=== PATIENT | female | born 1950 | race Caucasian/White ===

== ENCOUNTER 2018-04-02 18:10 | Observation (INO) ==
--- NOTE | 2018-04-02 18:35 | Emergency Department Note ---
Disposition Clinical Impression: Atrial fibrillation with RVR, Diverticulitis Disposition: Still a Patient Referrals: Miles Yan DO [Primary Care Provider] - Forms: ED Satisfaction Letter General Adult HPI - General Chief complaint: ED Arrhythmia/Palpitations Stated complaint: "heart jumping in chest"/"high bp" Time Seen by Provider: 04/02/18 18:15 Source: patient, family Limitations: no limitations Nursing Notes Reviewed: Yes Vital Signs Reviewed: Yes - History of Present Illness HPI Narrative: Patient presents with sensation of heart fluttering for the last day and she has not had this in the past. No history of atrial fibrillation. No chest pain or tightness or discomfort or pressure. No shortness of breath or diaphoresis. No pain or swelling of the lower extremities. No medication has been used. Family history: Positive for heart disease in both parents. Social history: No smoking. She is here with her granddaughter. Pain Scale: 0 - Related Data Home Medications Medication Instructions Recorded Confirmed ALPRAZolam [Xanax 0.25 MG Tablet] 0.25 mg PO DAILY PRN 09/23/16 04/02/18 Metoprolol Succinate [Toprol Xl] 12.5 mg PO DAILY 04/02/18 04/02/18 Allergies Allergy/AdvReac Type Severity Reaction Status Date / Time codeine AdvReac Nausea Verified 04/02/18 18:12 Sulfa (Sulfonamide AdvReac Nausea Verified 04/02/18 18:12 Antibiotics) Review of Systems: Constitutional: No fever Vision: No blurred vision ENT: No rhinorrhea Respiratory: No cough Allergic: No allergies : No blood in urine GI: No blood in stool Hematologic: No bruising Dermatologic: No skin rash Musculoskeletal: No pain in the extremities Neuro: No numbness of the extremities Past Medical History - Past Medical History Medical history: Reports: fibromyalgia, other Surgical history: Reports: cholecystectomy, other Psychiatric history: Reports: no psych history STUDIO MODEL history: Reports: no STUDIO MODEL history - Social History Smoking Status: Former smoker Smokeless Tobacco Status: No Alcohol use: Reports: none Drug use: Reports: none Physical Exam CONSTITUTIONAL: Well-appearing; well-nourished; A&O X 3, in no apparent distress HEAD: Normocephalic; atraumatic EYES: PERRL, no scleral icterus NOSE: The nose is normal in appearance without rhinorrhea RESP: Normal chest excursion with respiration; breath sounds clear and equal bilaterally; no wheezes, rhonchi, or rales CARD: Regular rhythm, without murmurs, rub or gallop ABD: Non-distended; non-tender, soft, without rigidity, rebound or guarding,no pulsatile mass SKIN: Normal for age and race; warm and dry without diaphoresis ; no apparent lesions EXTREMITIES: Pulses are 2 plus and equal times 4 extremities, no peripheral edema or calf muscle pain - General Limitations: no limitations General appearance: alert, in no apparent distress Course Vital Signs Temperature 98.1 F 04/02/18 18:12 Pulse Rate 119 04/02/18 18:12 Respiratory Rate 20 04/02/18 18:12 Blood Pressure 174/87 04/02/18 18:12 O2 Sat by Pulse Oximetry 98 04/02/18 18:12 Temperature 98.1 F 04/02/18 18:12 Pulse Rate 112 04/02/18 19:01 Respiratory Rate 16 04/02/18 19:01 Blood Pressure 141/94 04/02/18 19:01 O2 Sat by Pulse Oximetry 98 04/02/18 19:01 Oxygen Delivery Oxygen Delivery Room Air Medical Decision Making - [facility] Narrative Medical decision making narrative: Patient has initial EKG showing sinus tachycardia with a rate of 107 without acute ischemic change and the second EKG was done when the patient was having a sensation of palpitations and does show normal sinus rhythm initially changing to atrial fibrillation with rapid ventricular response with a rate of 131 bpm. Patient then went back into sinus rhythm. Labs are pending including troponin and electrolytes the patient will be admitted. Care will be transitioned to the night team of physicians [id number]
[2018-04-02 19:21] LABS: Hematocrit 38.7 % (35.3-44.9); Hemoglobin 13.2 g/dL (11.5-15.4); Mean Corpuscular HGB Conc 34.1 g/dL (31.6-35.5); Mean Corpuscular Hemoglobin 32.1 pg (28.0-33.3); Mean Corpuscular Volume 94.2 fL (83.0-100.0); Mean Platelet Volume 9.2 fL (9.4-12.4); Platelet Count 258 K/mcL (140-400); Red Blood Count 4.11 M/mcL (3.82-4.97); Red Cell Distribution Width 12.4 % (11.5-14.5)
--- NOTE | 2018-04-02 19:27 | Emergency Department Note ---
Disposition Clinical Impression: Atrial fibrillation with RVR Disposition: Admitted As Inpatient Condition: Fair General Adult HPI - General Chief complaint: ED Arrhythmia/Palpitations Stated complaint: "heart jumping in chest"/"high bp" Time Seen by Provider: 04/02/18 18:15 Source: patient, family Limitations: no limitations - History of Present Illness Pain Scale: 0 - Related Data Home Medications Medication Instructions Recorded Confirmed ALPRAZolam [Xanax 0.25 MG Tablet] 0.25 mg PO DAILY PRN 09/23/16 04/02/18 Metoprolol Succinate [Toprol Xl] 12.5 mg PO DAILY 04/02/18 04/02/18 Allergies Allergy/AdvReac Type Severity Reaction Status Date / Time codeine AdvReac Nausea Verified 04/02/18 18:12 Sulfa (Sulfonamide AdvReac Nausea Verified 04/02/18 18:12 Antibiotics) Past Medical History - Past Medical History Medical history: Reports: fibromyalgia, other Surgical history: Reports: cholecystectomy, other Psychiatric history: Reports: no psych history IMPROVEMENT INTERN history: Reports: no IMPROVEMENT INTERN history - Social History Smoking Status: Former smoker Smokeless Tobacco Status: No Alcohol use: Reports: none Drug use: Reports: none Physical Exam - General Limitations: no limitations General appearance: alert, in no apparent distress Course Vital Signs Temperature 98.1 F 04/02/18 18:12 Pulse Rate 119 04/02/18 18:12 Respiratory Rate 20 04/02/18 18:12 Blood Pressure 174/87 04/02/18 18:12 O2 Sat by Pulse Oximetry 98 04/02/18 18:12 Temperature 97.9 F 04/02/18 23:01 Pulse Rate 84 04/02/18 23:01 Respiratory Rate 16 04/02/18 23:01 Blood Pressure 152/72 04/02/18 23:01 O2 Sat by Pulse Oximetry 97 04/02/18 23:01 Oxygen Delivery Oxygen Delivery Room Air Medical Decision Making - Lab Data Result diagrams: 04/02/18 18:29 04/02/18 18:29 Lab Results 04/02/18 04/02/18 Range/Units 18:29 18:29 WBC 10.1 (4.3-11.1) K/mcL RBC 4.11 (3.82-4.97) M/mcL Hgb 13.2 (11.5-15.4) g/dL Hct 38.7 (35.3-44.9) % MCV 94.2 (83.0-100.0) fL MCH 32.1 (28.0-33.3) pg MCHC 34.1 (31.6-35.5) g/dL RDW 12.4 (11.5-14.5) % Plt Count 258 (140-400) K/mcL MPV 9.2 L (9.4-12.4) fL Sodium 138 (136-145) mEq/L Potassium 4.3 (3.5-5.1) mEq/L Chloride 106 (98-107) mEq/L Carbon Dioxide 23 (23-29) mEq/L BUN 21 (8-23) mg/dL Creatinine 1.03 (0.60-1.20) mg/dL Est GFR ( Amer) > 60 (> 60) Est GFR (Non-Af Amer) 53 L (> 60) BUN/Creatinine Ratio 20 (6-26) Glucose 97 (70-105) mg/dL Calculated Osmolality 289 (280-300) Calcium 9.4 (8.6-10.3) mg/dL Magnesium 2.1 (1.6-2.6) mg/dL Troponin I < 0.03 (< 0.04) ng/mL TSH 4.632 (0.340-5.600) mcIU/mL Critical Care Time Critical Care Time: Yes Total Critical Care Time: 33 Attestation: Critical care performed: Time is exclusive of separately billable procedures. Time includes: direct patient care, patient reassessment, coordination of patient care, interpretation of data (laboratory data, radiology data, and respiratory data), review of patient's medical records, medical consultation and documentation of patient care. Procedures included in critical care time: Procedures excluded from critical care time:
[2018-04-02 19:44] LABS: BUN/Creatinine Ratio 20 (6-26); Blood Urea Nitrogen 21 mg/dL (8-23); Calcium 9.4 mg/dL (8.6-10.3); Carbon Dioxide 23 mEq/L (23-29); Chloride 106 mEq/L (98-107); Glucose 97 mg/dL (70-105); Osmolality,Calculated 289 (280-300); Potassium 4.3 mEq/L (3.5-5.1); Sodium 138 mEq/L (136-145); eGFR For African Americans > 60 (> 60); eGFR For Non-African Americans 53 (> 60)
[2018-04-02 19:45] LABS: Troponin I < 0.03 ng/mL (< 0.04)
--- NOTE | 2018-04-02 19:47 | Emergency Department Note ---
Disposition Clinical Impression: Atrial fibrillation with RVR, Diverticulitis Disposition: Still a Patient Referrals: Miles Yan DO [Primary Care Provider] - Forms: ED Satisfaction Letter General Adult HPI - General Chief complaint: ED Arrhythmia/Palpitations Stated complaint: "heart jumping in chest"/"high bp" Time Seen by Provider: 04/02/18 18:15 Source: patient, family Limitations: no limitations - History of Present Illness Pain Scale: 0 - Related Data Home Medications Medication Instructions Recorded Confirmed ALPRAZolam [Xanax 0.25 MG Tablet] 0.25 mg PO DAILY PRN 09/23/16 04/02/18 Metoprolol Succinate [Toprol Xl] 12.5 mg PO DAILY 04/02/18 04/02/18 Allergies Allergy/AdvReac Type Severity Reaction Status Date / Time codeine AdvReac Nausea Verified 04/02/18 18:12 Sulfa (Sulfonamide AdvReac Nausea Verified 04/02/18 18:12 Antibiotics) Past Medical History - Past Medical History Medical history: Reports: fibromyalgia, other Surgical history: Reports: cholecystectomy, other Psychiatric history: Reports: no psych history TOURIST INFORMATION ASSISTANT history: Reports: no TOURIST INFORMATION ASSISTANT history - Social History Smoking Status: Former smoker Smokeless Tobacco Status: No Alcohol use: Reports: none Drug use: Reports: none Physical Exam - General Limitations: no limitations General appearance: alert, in no apparent distress Course Vital Signs Temperature 98.1 F 04/02/18 18:12 Pulse Rate 119 04/02/18 18:12 Respiratory Rate 20 04/02/18 18:12 Blood Pressure 174/87 04/02/18 18:12 O2 Sat by Pulse Oximetry 98 04/02/18 18:12 Temperature 98.1 F 04/02/18 18:12 Pulse Rate 112 04/02/18 19:01 Respiratory Rate 16 04/02/18 19:01 Blood Pressure 141/94 04/02/18 19:01 O2 Sat by Pulse Oximetry 98 04/02/18 19:01 Oxygen Delivery Oxygen Delivery Room Air Medical Decision Making - Lab Data Result diagrams: 04/02/18 18:29 04/02/18 18:29 Lab Results 04/02/18 04/02/18 Range/Units 18:29 18:29 WBC 10.1 (4.3-11.1) K/mcL RBC 4.11 (3.82-4.97) M/mcL Hgb 13.2 (11.5-15.4) g/dL Hct 38.7 (35.3-44.9) % MCV 94.2 (83.0-100.0) fL MCH 32.1 (28.0-33.3) pg MCHC 34.1 (31.6-35.5) g/dL RDW 12.4 (11.5-14.5) % Plt Count 258 (140-400) K/mcL MPV 9.2 L (9.4-12.4) fL Sodium 138 (136-145) mEq/L Potassium 4.3 (3.5-5.1) mEq/L Chloride 106 (98-107) mEq/L Carbon Dioxide 23 (23-29) mEq/L BUN 21 (8-23) mg/dL Creatinine 1.03 (0.60-1.20) mg/dL Est GFR ( Amer) > 60 (> 60) Est GFR (Non-Af Amer) 53 L (> 60) BUN/Creatinine Ratio 20 (6-26) Glucose 97 (70-105) mg/dL Calculated Osmolality 289 (280-300) Calcium 9.4 (8.6-10.3) mg/dL Troponin I < 0.03 (< 0.04) ng/mL Critical Care Time Critical Care Time: Yes Total Critical Care Time: 30 Attestation: Critical care performed: Time is exclusive of separately billable procedures. Time includes: direct patient care, patient reassessment, coordination of patient care, interpretation of data (laboratory data, radiology data, and respiratory data), review of patient's medical records, medical consultation and documentation of patient care. Procedures included in critical care time: Procedures excluded from critical care time: Attestation Statement - Attestation Attestation: I examined this patient and my medical decision-making was reviewed with the Resident Physician. I agree with the documented findings, disposition and treatment plan as described except to the extent set forth below. Patient signed out pending workup. Patient with new onset A. fib is paroxysmal. On my evaluation she is in atrial fib in the 150s. Lungs clear she is in no distress. Plan. Cardiac workup, IV Cardizem, admission.
[2018-04-02 19:58] LABS: Thyroid Stimulating Hormone 4.632 mcIU/mL (0.340-5.600)
[2018-04-02] MEDS ORDERED: *HR* Enoxaparin 80 MG/0.8 ML SYRINGE SQ ONE (20:00)
--- NOTE | 2018-04-02 20:01 | Emergency Department Note ---
Disposition Clinical Impression: Atrial fibrillation with RVR Disposition: Admitted As Inpatient Condition: Fair Referrals: Miles Yan DO [Primary Care Provider] - Forms: ED Satisfaction Letter Time of Disposition: 20:10 Arrhythmia/Palpitations HPI - General Chief Complaint: ED Arrhythmia/Palpitations Stated Complaint: "heart jumping in chest"/"high bp" Time Seen by Provider: 04/02/18 18:15 Source: patient, family Limitations: no limitations Nursing Notes Reviewed: Yes Vital Signs Reviewed: Yes - Related Data Home Medications Medication Instructions Recorded Confirmed ALPRAZolam [Xanax 0.25 MG Tablet] 0.25 mg PO DAILY PRN 09/23/16 04/02/18 Metoprolol Succinate [Toprol Xl] 12.5 mg PO DAILY 04/02/18 04/02/18 Allergies Allergy/AdvReac Type Severity Reaction Status Date / Time codeine AdvReac Nausea Verified 04/02/18 18:12 Sulfa (Sulfonamide AdvReac Nausea Verified 04/02/18 18:12 Antibiotics) Past Medical History - Past Medical History Medical history: Reports: fibromyalgia, other Surgical history: Reports: cholecystectomy, other Psychiatric history: Reports: no psych history RECONCILIATION MANAGER history: Reports: no RECONCILIATION MANAGER history - Social History Smoking Status: Former smoker Smokeless Tobacco Status: No Alcohol use: Reports: none Drug use: Reports: none Physical Exam - General Limitations: no limitations General appearance: alert, in no apparent distress Course Course Narrative: Assumed care from day shift. Please see their documentation. Briefly, patient is a 67-year-old female who presents with intermittent palpitations throughout the day. Upon her arrival to the emergency department she was found to be in paroxysmal atrial fibrillation. Upon my examination, her heart rate was intermittently in the 130s to 150s. Decision was made to give her 15 mg of Cardizem bolus. This did improve her heart rate down to 80-90. She is still intermittently in atrial fibrillation. We have also given her a dose of subcutaneous Lovenox. She has a [id number] of 3. I have discussed with the hospitalist Dr. Rae who has accepted her for admission. Vital Signs Temperature 98.1 F 04/02/18 18:12 Pulse Rate 119 04/02/18 18:12 Respiratory Rate 20 04/02/18 18:12 Blood Pressure 174/87 04/02/18 18:12 O2 Sat by Pulse Oximetry 98 04/02/18 18:12 Temperature 98.1 F 04/02/18 18:12 Pulse Rate 83 04/02/18 19:40 Respiratory Rate 21 04/02/18 19:40 Blood Pressure 135/63 04/02/18 19:40 O2 Sat by Pulse Oximetry 95 04/02/18 19:40 Oxygen Delivery Oxygen Delivery Room Air Arrhythmia/Palpitations - Medical Records Medical records reviewed: Yes I reviewed the patient's medical records. - Lab Data Lab results reviewed: Yes I reviewed the patient's lab results. Result diagrams: 04/02/18 18:29 04/02/18 18:29 Lab Results 04/02/18 04/02/18 Range/Units 18:29 18:29 WBC 10.1 (4.3-11.1) K/mcL RBC 4.11 (3.82-4.97) M/mcL Hgb 13.2 (11.5-15.4) g/dL Hct 38.7 (35.3-44.9) % MCV 94.2 (83.0-100.0) fL MCH 32.1 (28.0-33.3) pg MCHC 34.1 (31.6-35.5) g/dL RDW 12.4 (11.5-14.5) % Plt Count 258 (140-400) K/mcL MPV 9.2 L (9.4-12.4) fL Sodium 138 (136-145) mEq/L Potassium 4.3 (3.5-5.1) mEq/L Chloride 106 (98-107) mEq/L Carbon Dioxide 23 (23-29) mEq/L BUN 21 (8-23) mg/dL Creatinine 1.03 (0.60-1.20) mg/dL Est GFR ( Amer) > 60 (> 60) Est GFR (Non-Af Amer) 53 L (> 60) BUN/Creatinine Ratio 20 (6-26) Glucose 97 (70-105) mg/dL Calculated Osmolality 289 (280-300) Calcium 9.4 (8.6-10.3) mg/dL Troponin I < 0.03 (< 0.04) ng/mL TSH 4.632 (0.340-5.600) mcIU/mL - Radiology Data Radiology results reviewed: Yes I reviewed the patient's radiology results. Chest X-Ray 04/02/18 18:29 IMPRESSION: Stable portable study. D/ / Eunice Mcdaniel Cha, MD / Eunice Mcdaniel Cha, MD Interpreting Provider: Eunice cMdaniel Cha, MD
[2018-04-02] MEDS ORDERED: dilTIAZem HCl 60 MG TABLET PO ONE (20:30)
[2018-04-02] MEDS ORDERED: ALPRAZolam 0.25 MG TABLET PO PRN (21:12)
[2018-04-02] MEDS ORDERED: Naloxone 0.4 MG/ML INJ IVP PRN (21:12)
[2018-04-02 21:28] LABS: Magnesium 2.1 mg/dL (1.6-2.6)
--- NOTE | 2018-04-02 21:34 | Internal Med History&Physical ---
Date of Encounter: 04/03/18 Time of Encounter: 21:31 Internal Medicine - H&P: HPI Chief complaint: palpitations Admitted From: Emergency Dept Plans for Post Hospital Care: Home History of present illness: Ms. Whitaker is a 67 year old female with history of htn and anxiety who presents with sudden onset of palpitations that started this morning. This has been intermittent throughout the day. She denies any other symptoms such as chest pain, shortness breath, dizziness, blurry vision, headache, abdominal pain, nausea, vomiting, diarrhea, constipation, urinary symptoms or neurological symptoms. Because of the symptoms above she presented to the ED where she was found initially to be in sinus tachycardia. Later on she felt palpitations again and was noted to be in atrial fibrillation which was confirmed on EKG. She had a rate anywhere between 130-150 for which she was given IV Cardizem and later on in the night she converted to sinus rhythm. By the time was evaluating the patient he was in sinus rhythm in the ED with rate in the 80s. The patient has no history of atrial fibrillation. She had a stress test in years ago that was unremarkable. The patient tells me that she is on Toprol-XL and should be on 25 mg however she only takes 12.5 mg of that. She does not like being on medications. She also has Xanax at home but she has not used that in a long time. Laboratory workup was unremarkable and a chest x-ray was unremarkable as well. The patient's blood pressure on initial presentation was 174/87. Her blood pressure diastolically was 104 while I was in the room. Past Med Surg Social Fam HX - Past Medical History Medical history: fibromyalgia, other Psychiatric history: no psych history - Past Surgical History Surgical History: cholecystectomy, other - Social History Smoking Status: Former smoker Smokeless Tobacco Status: No Alcohol use: none Drug use: none - Family History Mother Living Status: Hx Family Cardiac Disorders: Yes (acute [place]) Father Living Status: Hx Family Cardiac Disorders: Yes (acute [place]) Sister Hx Family Cancer: Yes (Breast cancer) Internal Medicine - H&P: Meds ALPRAZolam [Xanax 0.25 MG Tablet] 0.25 mg PO DAILY PRN 09/23/16 [History] Metoprolol Succinate [Toprol Xl] 12.5 mg PO DAILY 04/02/18 [History] Aspirin [Lo-Dose Aspirin EC] 81 mg PO DAILY #30 tablet. 04/03/18 [Rx] 3 Allergy/AdvReac Type Severity Reaction Status Date / Time codeine AdvReac Nausea Verified 04/02/18 18:12 Sulfa (Sulfonamide AdvReac Nausea Verified 04/02/18 18:12 Antibiotics) All Systems PM: A 10-system review of systems was performed and is negative for pertinent findings except as documented above in the HPI. Review of systems: All systems reviewed are negative except for as mentioned above - Constitutional Vitals: Temp Pulse Resp BP Pulse Ox 98.1 F 89 20 144/62 95 04/02/18 18:12 04/02/18 20:52 04/02/18 20:52 04/02/18 20:52 04/02/18 20:52 Exam: GEN: NAD HEENT: AT, NC, No cyanosis, oral mucosa is moist, No JVD Lymphatics: No lymphadenoapthy Eyes: Extrocular muscles intact, anicteric CVS:RRR. S1, S2, No m/r/g RESP: CTAB ABD: Soft, NT, ND, +BS EXT: No edema, No rashes, 2+ DP NEURO: Nonfocal, CN II-XII intact, No focal motor or sensory deficits Psych: Cooperative, Not anxious or depressed Internal Med - H&P Results - Labs CBC & Chem 7: 04/02/18 18:29 04/03/18 04:17 - Assessment and plan (1) Atrial fibrillation with RVR Status: Acute Assessment and plan: The patient has converted to sinus rhythm and is rate controlled now. This was done after IV Cardizem bolus in the ED. We will increase the patient's Toprol- XL to 25 mg. We will keep on telemetry. TSH is normal. Check mag. Check an echocardiogram. [id number] score of 3. Patient would benefit from anticoagulation. A detailed discussion about risks and benefits was discussed with the patient and her daughter who is at bedside who is a nurse. The patient does not like being on medications. I did discuss with the patient and her daughter the risks of bleeding on anticoagulation and the benefits of them to prevent strokes. They understand. For now the patient does not want to be on anticoagulation and is okay with aspirin. The daughter will be discussing this with the patient and will give a final decision in the morning. (2) Hypertension Status: Chronic Assessment and plan: Patient's blood pressure is elevated. Will increase Toprol-XL to 25 mg daily. Qualifiers: Hypertension type: essential hypertension Qualified Code(s): I10 - Essential (primary) hypertension (3) Anxiety Status: Chronic Assessment and plan: Continue home meds. (4) DVT prophylaxis Status: Resolved Assessment and plan: Heparin subcutaneous - Time Spent With Patient Total time spent is greater than 50% in coordination of care (as documented) at patient's floor/unit and/or counseling patient:
[2018-04-02] MEDS: Acetaminophen 325 MG TABLET PO PRN (23:52)
[2018-04-03] MEDS ORDERED: Metoprolol XL (24 HR) Succ 25 MG TAB.ER.24H PO STA (00:38)
[2018-04-03] MEDS: *HR* Heparin 5,000 UNIT/ML VIAL SQ SCH ×2 (00:39→05:58)
[2018-04-03 05:11] LABS: BUN/Creatinine Ratio 20 (6-26); Blood Urea Nitrogen 17 mg/dL (8-23); Calcium 9.2 mg/dL (8.6-10.3); Carbon Dioxide 23 mEq/L (23-29); Chloride 109 mEq/L (98-107); Glucose 96 mg/dL (70-105); Osmolality,Calculated 289 (280-300); Potassium 4.1 mEq/L (3.5-5.1); Sodium 139 mEq/L (136-145); eGFR For African Americans > 60 (> 60); eGFR For Non-African Americans > 60 (> 60)
[2018-04-03] MEDS ORDERED: Metoprolol XL (24 HR) Succ 25 MG TAB.ER.24H PO SCH ×3 (09:00)
[2018-04-03] MEDS ORDERED: Aspirin Enteric Coated 81 MG Tablet PO SCH (09:00)
[2018-04-03] MEDS: Acetaminophen 325 MG TABLET PO PRN (10:13)
--- NOTE | 2018-04-03 11:19 | Discharge Summary ---
- NOTES TO OUTPATIENT PROVIDER Notes to Outpatient Provider: With PCP, no change in medications, Aspirin has been added for new onset Afib Date of Encounter: 04/03/18 Time of Encounter: 11:16 - Discharge Diagnosis (1) DVT prophylaxis Priority: Primary Status: Resolved Assessment and Plan: Heparin subcutaneous (2) Atrial fibrillation with RVR Priority: Primary Status: Acute Assessment and Plan: The patient has converted to sinus rhythm from the ER and is rate controlled now. This was done after IV Cardizem bolus in the ED. TSH is normal. Electrolytes and Mag WNL [id number] score of 3. Patient would benefit from anticoagulation. A detailed discussion about risks and benefits was discussed with the patient and her daughter who is at bedside who is a nurse. The patient does not like being on medications. I did discuss with the patient and her daughter the risks of bleeding on anticoagulation and the benefits of them to prevent CVA. They understand but are okay with aspirin only for now and will discuss ARTURO/ Warfarin with her PCP. The patient was supposed to be on toprol 25mg daily at home, but reported she hadn't been taking it as prescribed because it made her dizzy Encouraged to be compliant with medications ECHO was done and unremarkable (3) Hypertension Priority: Secondary Status: Chronic Assessment and Plan: Currently controlled on current meds, continue same at home Qualifiers: Hypertension type: essential hypertension Qualified Code(s): I10 - Essential (primary) hypertension (4) Anxiety Priority: Secondary Status: Chronic Assessment and Plan: Continue home meds. Hospital course: Ms. Whitaker is a 67 year old female with PMH of HTN, AFib, Anxiety Admitted to obs for Afib with RVR, asymptomatic, ambulatory, now controlled. Seen and evaluated with daughters at the bedside No new complains HR controlled on metoprolol, on ASA for anticoagulation, refused NOAS/Warfarin ECHO was unremarkable She is clinically and hemodynamically stable Discharge discussed with: patient, family, nurse - Time Spent with Patient Total time spent providing and/or coordinating discharge services: Less than 30 minutes - Discharge Medications Prescriptions: Aspirin [Lo-Dose Aspirin EC] 81 mg PO DAILY #30 tablet. Home Medications: ALPRAZolam [Xanax 0.25 MG Tablet] 0.25 mg PO DAILY PRN 09/23/16 [History] Metoprolol Succinate [Toprol Xl] 12.5 mg PO DAILY 04/02/18 [History] Aspirin [Lo-Dose Aspirin EC] 81 mg PO DAILY #30 tablet. 04/03/18 [Rx] Allergies/Adverse Reactions: 3 Allergy/AdvReac Type Severity Reaction Status Date / Time codeine AdvReac Nausea Verified 04/02/18 18:12 Sulfa (Sulfonamide AdvReac Nausea Verified 04/02/18 18:12 Antibiotics) Date of admission: 04/02/18 21:24 Primary care physician: Miles Yan Discharging clinician: Trent Vang Anticipated date of discharge: 04/03/18 - Constitutional Vitals: Temp Pulse Resp BP Pulse Ox 98.2 F 68 16 133/63 95 04/03/18 07:03 04/03/18 07:03 04/03/18 07:03 04/03/18 07:03 04/03/18 07:03 General appearance: Present: A&O X 3, no acute distress - Head Head exam: Present: atraumatic, normocephalic - Eye Eye exam: Present: PERRL, conjuntiva pink, sclera anicteric Pupils: Present: PERRL - Neck Neck exam general surgery: Present: supple, trachea midline. Absent: lymphadenopathy - Respiratory Respiratory exam: Present: CTAB. Absent: accessory muscle use, rales, rhonchi, wheezes - Cardiovascular Cardiovascular exam: Present: RRR, +S1, +S2. Absent: diastolic murmur, gallop, rubs, systolic murmur - GI/Abdominal GI/Abdominal exam: Present: normal bowel sounds, soft, no peritoneal signs. Absent: distended, tenderness - Extremities Exam Extremities exam: Present: warm, radial pulses palpable and symmetrical. Absent : calf tenderness, cyanotic, pedal edema - Neurological Exam Neurological exam: Present: alert, CN II-XII intact, oriented X3, no focal deficits. Absent: pronater drift, facial droop, speech deficit - Skin Skin exam: Present: dry, intact - Patient Status Disposition: Home, Self-Care Condition: Good Functional capacity at discharge: independent ambulation Overall status at discharge: patient is back to baseline - Discharge Instructions Follow Up With: Miles Yan DO [Primary Care Provider] - - Diet and Activity Activity: resume usual activities as tolerated Diet: low salt diet
[2018-04-03 11:52] VITALS: BP 143/76
[2018-04-03] MEDS ORDERED: *HR* Rivaroxaban 10 MG TABLET PO SCH (17:00)
[2018-04-03] MEDS ORDERED: Metoprolol XL (24 HR) Succ 25 MG TAB.ER.24H PO ONE (21:31)
--- NOTE | 2018-04-06 15:32 | Electrocardiograph Report ---
[address] [address] Test Date: 2018-04-02 Pat Name: Maricarmen Whitaker Department: 103 Room: 2NE18 Gender: F Jewelry Sales Representative: : 1950 Requested By: Anthony Jauregui Order Number: [id number] Reading MD: Eros Rebollar Measurements Intervals [place] Rate: 107 P: 48 [place]: 144 QRS: 4 QRSD: 93 T: 31 QT: 322 QTc: 384 Interpretive Statements SINUS TACHYCARDIA INCOMPLETE RIGHT BUNDLE BRANCH BLOCK Electronically Signed On 04-06-2018 15:31:09 EDT by Eros Rebollar
--- NOTE | 2018-04-06 17:05 | Electrocardiograph Report ---
[place] [address] Test Date: 2018-04-02 Pat Name: Maricarmen Whitaker Department: 103 Room: 2NE18 Gender: F Ticket Agent: : 1950 Requested By: Anthony Jauregui Order Number: [id number] Reading MD: Katerine Faulkner Measurements Intervals [place] Rate: 131 P: [place]: 0 QRS: 14 QRSD: 89 T: 28 QT: 340 QTc: 417 Interpretive Statements SINUS RHYTHM ATRIAL TACHYCARDIA POSSIBLE RIGHT VENTRICULAR CONDUCTION DELAY [RSR (QR) IN V1/V2] MINIMAL ST DEPRESSION [0.025+ mV ST DEPRESSION] ABNORMAL RHYTHM ECG Electronically Signed On 04-06-2018 17:03:34 EDT by Katerine Faulkner
== END 2018-04-03 14:37 | disposition home or self-care (01) ==
LOC: 2NENU 18:10 → EMEROO 18:10 → SUATTDRO 21:24 → 2NENU 22:30
PROVIDERS: ADMIT Internal Medicine; ATTEND Internal Medicine

== ENCOUNTER 2021-05-11 15:38 | Observation (INO) ==
[2021-05-11] MEDS ORDERED: 0.9 % Sodium Chloride 1,000 ML IVC ONE (15:57)
[2021-05-11 16:14] LABS: Basophils # 0.1 K/mcL (0.0-0.2); Basophils % 0.7 %; Eosinophils # 0.2 K/mcL (0.0-0.6); Eosinophils % 2.8 %; Hematocrit 42.8 % (35.3-44.9); Immature Granulocytes % 0.1 % (0-4); Lymphocytes # 3.5 K/mcL (0.6-4.6); Lymphocytes % 41.2 %; Mean Corpuscular HGB Conc 32.7 g/dL (31.6-35.5); Mean Corpuscular Hemoglobin 31.5 pg (28.0-33.3); Mean Corpuscular Volume 96.4 fL (83.0-100.0); Mean Platelet Volume 9.1 fL (9.4-12.4); Monocytes # 0.6 K/mcL (0.0-1.3); Monocytes % 7.5 %; Platelet Count 265 K/mcL (140-400); Red Blood Count 4.44 M/mcL (3.82-4.97); Red Cell Distribution Width 12.3 % (11.5-14.5); Segmented Neutrophils % 47.7 %; White Blood Count 8.5 K/mcL (4.3-11.1)
[2021-05-11 16:16] LABS: Bacteria,Urine Few per hpf (None-Few); Bilirubin,Urine Negative (Negative); Blood,Urine Negative (Negative); Clarity,Urine Clear (Clear); Color,Urine Colorless (Yellow); Glucose,Urine (UA) Normal (Normal); Ketones,Urine Negative (Negative); Leukocyte Esterase,Urine Trace (Negative); Mucus,Urine Few per lpf (None-Few); Nitrite,Urine Negative (Negative); PH,Urine 6.5 pH Units (5.0-8.0); Protein,Urine Negative (Neg-Trace); RBC,Urine 0-3 per hpf (0-3); Specific Gravity,Urine < 1.005 (1.010-1.025); Squamous Epithelial Cell,Urine Few per hpf (None-Few); Urobilinogen,Urine Normal (Normal); WBC,Urine 0-3 per hpf (0-3)
[2021-05-11 16:22] LABS: INR 1.1; Prothrombin Time 12.5 Seconds (9.4-12.1)
[2021-05-11 16:25] LABS: Activated Partial Thrombo Time 24.8 Seconds (26.0-36.0)
[2021-05-11 16:39] LABS: BUN/Creatinine Ratio 13 (6-26); Blood Urea Nitrogen 13 mg/dL (8-23); Calcium 9.4 mg/dL (8.6-10.3); Carbon Dioxide 23 mEq/L (23-29); Chloride 102 mEq/L (98-107); Glucose 92 mg/dL (70-105); Magnesium 1.9 mg/dL (1.6-2.6); Osmolality,Calculated 280 (280-300); Potassium 3.8 mEq/L (3.5-5.1); Sodium 135 mEq/L (136-145); Troponin I < 0.03 ng/mL (< 0.04); eGFR For African Americans > 60 (> 60); eGFR For Non-African Americans 54 (> 60)
[2021-05-11 16:49] LABS: Thyroid Stimulating Hormone 3.822 mcIU/mL (0.340-5.600)
[2021-05-11] MEDS ORDERED: DilTIAZem 50 MG/50 ML IV.SOLN IVC SCH (17:30)
[2021-05-11] MEDS ORDERED: Naloxone 0.4 MG/ML INJ IVP PRN (18:06)
[2021-05-11] MEDS ORDERED: *HR* Metoprolol 5 MG/5 ML VIAL IVP STA (18:28)
[2021-05-11] MEDS ORDERED: ALPRAZolam 0.25 MG TABLET PO PRN (20:30)
[2021-05-12 05:20] LABS: Basophils # 0.1 K/mcL (0.0-0.2); Basophils % 0.7 %; Eosinophils # 0.1 K/mcL (0.0-0.6); Eosinophils % 1.4 %; Hematocrit 36.9 % (35.3-44.9); Hemoglobin 11.9 g/dL (11.5-15.4); Immature Granulocytes % 0.3 % (0-4); Lymphocytes # 2.8 K/mcL (0.6-4.6); Lymphocytes % 40.1 %; Mean Corpuscular HGB Conc 32.2 g/dL (31.6-35.5); Mean Corpuscular Hemoglobin 31.2 pg (28.0-33.3); Mean Corpuscular Volume 96.6 fL (83.0-100.0); Mean Platelet Volume 9.2 fL (9.4-12.4); Monocytes # 0.5 K/mcL (0.0-1.3); Monocytes % 6.9 %; Neutrophils # 3.6 K/mcL (1.6-8.9); Platelet Count 213 K/mcL (140-400); Red Blood Count 3.82 M/mcL (3.82-4.97); Red Cell Distribution Width 12.4 % (11.5-14.5); Segmented Neutrophils % 50.6 %; White Blood Count 7.1 K/mcL (4.3-11.1)
[2021-05-12 05:41] LABS: BUN/Creatinine Ratio 13 (6-26); Blood Urea Nitrogen 11 mg/dL (8-23); Calcium 8.8 mg/dL (8.6-10.3); Carbon Dioxide 24 mEq/L (23-29); Chloride 109 mEq/L (98-107); Glucose 91 mg/dL (70-105); Osmolality,Calculated 287 (280-300); Sodium 139 mEq/L (136-145); eGFR For African Americans > 60 (> 60); eGFR For Non-African Americans > 60 (> 60)
[2021-05-12] MEDS ORDERED: *HR* Heparin 5,000 UNIT/ML VIAL SQ SCH (06:00)
[2021-05-12] MEDS ORDERED: Metoprolol XL (24 HR) Succ 25 MG TAB.ER.24H PO SCH (09:00)
[2021-05-12] MEDS ORDERED: Aspirin Enteric Coated 81 MG Tablet PO SCH (09:00)
[2021-05-12 11:39] VITALS: BP 132/75
[2021-05-12] MEDS ORDERED: Apixaban 5 MG TABLET PO SCH (21:00)
== END 2021-05-12 14:33 | disposition home or self-care (01) ==
LOC: 3BNU 15:38 → EMEROOARM 15:38 → SUATTDRO 17:48 → 3BNU 18:45
PROVIDERS: ADMIT Internal Medicine; ATTEND Nurse Practitioner